=== PATIENT | female | born 1980 | race Caucasian/White ===

== ENCOUNTER 2018-05-15 19:46 | Emergency (ER) | payer SELFPAY ==
[~2018-05-15] VITALS: Ht 157.5 cm; Wt 76.0 kg
[2018-05-16] MEDS ORDERED: FAMOTIDINE 20MG TABLET PO ONE (01:00)
[2018-05-16] MEDS ORDERED: DIPHENHYDRAMINE 50MG CAPSULE PO ONE (01:00)
[2018-05-16 01:54] VITALS: BP 152/77
== END 2018-05-16 01:54 | disposition home or self-care (01) ==
LOC: ER 19:46
DX: L23.9 Allergic contact dermatitis, unspecified cause (principal)
CPT/HCPCS: 99283; Q0163

== ENCOUNTER 2018-05-17 13:10 | Emergency (ER) | payer SELFPAY ==
[~2018-05-17] VITALS: Ht 157.5 cm; Wt 76.0 kg
[2018-05-17 13:38] VITALS: BP 140/81
== END 2018-05-17 16:54 | disposition home or self-care (01) ==
LOC: ER 15:05
DX: R21 Rash and other nonspecific skin eruption (principal); Z98.890 Other specified postprocedural states
CPT/HCPCS: 99283